=== PATIENT | female | born 1955 | race Caucasian/White ===

== ENCOUNTER 2023-05-02 12:53 | Outpatient (OUT) | payer MEDICARE, BC, OTHER, SELFPAY ==
--- NOTE | 2023-05-02 12:57 | MM_ITS ---
Patient: CAROLYN SUGGS Exam Date: 05/02/2023 : 1955 Gender:F Ordering : DR JOHNNA MELVIN Admission #: [id number] Family : APPLE ESPARZA Order #: [id number] CLICK HERE TO VIEW EXAM RADIOLOGY REPORT PROCEDURE: MM TOMOSYNTHESIS SCREENING BI COMPARISON: MG MAMM SCREEN 3D VINCENT CAD, 04/30/2022. MG MAMM SCREEN 3D VINCENT CAD, 04/23/2021. MG MAMM VINCENT SCRN W CAD DIG, 07/30/2013. DIGITIZED_MAMMO, 06/03/2009. INDICATIONS: Screening Calculator Name NCI Breast Cancer Risk Assessment Tool 5 Year Breast Cancer Risk 2.80% Lifetime Breast Cancer Risk 8.10% Personal Breast Cancer No Personal Ovarian Cancer No Treatments None Family Cancers Mother with throat cancer at age 50. LOCATION: [facility] BREAST COMPOSITION: Scattered areas fibroglandular density. FINDINGS: DIAGNOSTIC CATEGORY 2--BENIGN FINDING: RIGHT BREAST: No significant suspicious finding. Scattered benign-appearing calcifications are present. Stable mild architectural distortion and 2 adjacent biopsy marker clips within posterior upper-outer quadrant. No significant change has occurred. LEFT BREAST: No significant suspicious finding. Scattered benign-appearing calcifications are present. No significant change has occurred. RECOMMENDATIONS: ROUTINE MAMMOGRAM AND CLINICAL EVALUATION IN 12 MONTHS. PLEASE NOTE: A NORMAL MAMMOGRAM DOES NOT EXCLUDE THE POSSIBILITY OF BREAST CANCER. A CLINICALLY SUSPICIOUS PALPABLE LUMP SHOULD BE BIOPSIED. Dictated by: José Miguel Boyer M.D. on 05/03/2023 at 13:40 Approved by: José Miguel Byoer M.D. on 05/03/2023 at 14:15
== END 2023-05-02 12:54 | disposition home or self-care (01) ==
LOC: MAMMO 12:53
PROVIDERS: PCP Family Medicine; Visit Provider Family Medicine
DX: Z12.31 Encounter for screening mammogram for malignant neoplasm of breast (principal); Z80.2 Family history of malignant neoplasm of other respiratory and intrathoracic organs
CPT/HCPCS: 77063; 77067